=== PATIENT | female | born 1990 | race American Indian/Alaskan Native ===

== ENCOUNTER 2017-12-04 14:27 | Outpatient (CLI) | payer OTHER ==
[2017-12-04] MEDS ORDERED: LACTATED RINGERS 500 ML IV ONE (14:46)
[2017-12-04] MEDS ORDERED: NORMOSOL-R PH 7.4 1,000 ML IV ONE ×2 (14:50→16:17)
[2017-12-04 15:02] LABS: Bacteria,Urine 1+ /HPF (Negative); Bilirubin,Urine NEG (Negative); Blood,Urine SM (Negative); Color,Urine Yellow (Yellow); Mucus,Urine 3+ /HPF; Urobilinogen,Urine < 2.0 mg/dL (<2.0)
[2017-12-04 15:03] LABS: Protein,Urine >500 mg/dL (Negative)
[2017-12-04 15:08] LABS: Amphetamine Screen,Urine PRESUMPTIVE NEGATIVE; Benzodiazepines Screen,Urine PRESUMPTIVE NEGATIVE; Cocaine Screen,Urine PRESUMPTIVE NEGATIVE; Methadone Screen,Urine PRESUMPTIVE NEGATIVE; Opiate Screen,Urine PRESUMPTIVE NEGATIVE
[2017-12-04 15:20] LABS: Cannabinoid Screen,Urine PRESUMPTIVE POSITIVE
[2017-12-04 16:48] LABS: Hematocrit 39.7 % (30.3-42.9); Hemoglobin 13.1 gm/dl (10.1-14.3); Mean Corpuscular HGB Conc 33 % (30-34); Mean Corpuscular Hemoglobin 29 pg (28-32); Mean Corpuscular Volume 88 fl (79-97); Platelet Count 140 K/mm3 (140-440); Red Blood Count 4.51 M/mm3 (3.65-5.03); Red Cell Distribution Width 14.9 % (13.2-15.2)
[2017-12-04 18:16] LABS: Alanine Aminotransferase 12 units/L (7-56)
[2017-12-04 18:40] VITALS: BP 123/67
--- NOTE | 2017-12-04 18:44 | Ultrasound Report ---
FINAL REPORT EXAM: US OB > = 14 WEEKS FETUS HISTORY: no care, elevated b/p TECHNIQUE: Standard full obstetrical ultrasound PRIORS: None. FINDINGS: LMP: 04/14/2017 clinical Age: 33 w 3 d US Age (average) = 29 w 1d EFW (BPD,HC,AC,FL) = 1186 g+/- 176g (2 lbs. 10 oz. +/- 6oz.) LMP EDC 01/19/2018 US EDC 02/18/2018 CI 78.4 (range 74 to 83) HC/AC 1.23 (range 0.96 to 1.11) FL/BPD 72.1 (range 71.7 to 87.7) FL/HC 19.5 (range 18.3 to 23.1) FL/AC 24.0 (range 20 to 24) BPD 7.6 cm corresponding to estimated age 30 weeks 2 days HC 27.8 cm corresponding to estimated age 30 weeks 3 days AC 22.7 cm corresponding to estimated age 27 weeks 0 days FL 5.4 cm corresponding to estimated age 28 weeks 5 days Presentation: Cephalic Activity: Monitored Placental location: Toward the right lateral aspect of the uterus Placental grade: 0 Cardiac motion: 142 BPM using M-mode doppler Heart (4 CH) : Present Umbilical cord: 3 vessel Bladder: Present Kidneys: Present stomach: Present Diaphragm: Present Spine: Present brain and skull: Present with normal anatomy femurs: Present Cord Insertion: Present Amniotic Fluid Volume: Adequate LANE: 10.4 cm Cervical Length: 3.5 cm IMPRESSION: Single intrauterine viable with an approximate age of 29 weeks 1 days.
== END 2017-12-04 18:52 | disposition home or self-care (01) ==
LOC: TRG 14:27
PROVIDERS: ATTEND Obstetrics & Gynecology
DX: O47.03 False labor before 37 completed weeks of gestation, third trimester (principal); Z3A.33 33 weeks gestation of pregnancy
CPT/HCPCS: 36415; 59025; 76805; 80307; 81001; 82565; 83615; 84450; 84460; 84550; 85027; 87086; 96360; 96361

== ENCOUNTER 2017-12-17 15:28 | Inpatient (IN) | payer OTHER ==
[2017-12-17 16:18] LABS: Bacteria,Urine 1+ /HPF (Negative); Bilirubin,Urine NEG (Negative); Blood,Urine SM (Negative); Color,Urine Yellow (Yellow); Mucus,Urine FEW /HPF; Urobilinogen,Urine < 2.0 mg/dL (<2.0)
[2017-12-17] MEDS ORDERED: LACTATED RINGERS 500 ML IV SCH (17:00)
[2017-12-17] MEDS ORDERED: PITOCin/NS 20 UNIT/1000ML DRIP 20,000 MILLIUNITS/1,000 ML BAG IV ONE (17:59)
[2017-12-17] MEDS ORDERED: REGLAN ONE (17:59)
[2017-12-17] MEDS ORDERED: BICITRA ONE (17:59)
[2017-12-17] MEDS ORDERED: ANCEF/STERILE WATER 2 GM/20 ML 0 GM/0 ML SYRINGE IV ONE (18:00)
[2017-12-17] MEDS ORDERED: PEPCID IV ONE (18:00)
[2017-12-17] MEDS ORDERED: SUBLIMAZE ONE (18:18)
--- NOTE | 2017-12-17 18:31 | History and Physical Report ---
History of Present Illness Date of examination: 12/17/17 Date of admission: 12/17/17 17:45 Chief complaint: active labor History of present illness: Pt with no care lmp 04/14/17 and edc of 01/19/18 and ega of 35 2. EDC by niesha done on 12/04/17 is 02/18/18. Pt has not had any care. It is unclear if she has IUGR as she is 35+ wks by lmp that she states she is sure about. Past History Past Medical History: no pertinent history Past Surgical History: section Social history: no significant social history - Obstetrical History Expected Date of Delivery: 01/19/18 Actual Gestation: 35 Week(s) 2 Day(s) : 4 Para: 3 Number of Living Children: 3 Medications and Allergies Allergies Allergy/AdvReac Type Severity Reaction Status Date / Time No Known Allergies Allergy Unverified 12/04/17 14:45 Home Medications Medication Instructions Recorded Confirmed Last Taken Type Nitrofurantoin Monohyd/M-Cryst 100 mg PO BID #14 capsule 12/04/17 Unknown Rx [Macrobid 100 mg Capsule] Active Meds: Active Medications Lactated Ringer's (Lactated Ringers) 500 mls @ 999 mls/hr IV DIRECT NARESH Last Admin: 12/17/17 17:19 Dose: 999 mls/hr Review of Systems All systems: negative - Vital Signs Vital signs: Vital Signs Pulse BP 95 H 135/98 12/17/17 16:08 12/17/17 16:08 Temp Pulse Resp BP Pulse Ox 98.0 F 115 H 18 119/83 100 12/17/17 16:57 12/17/17 17:58 12/17/17 16:57 12/17/17 17:00 12/17/17 17:58 - Physical Exam Lungs: Positive: Clear to auscultation, Normal air movement Abdomen: Positive: normal appearance, soft. Negative: distention, tenderness, guarding Genitourinary (Female): Positive: normal external genitalia, normal perenium. Negative: perineal/vulvar lesions - Obstetrical FHR: auscultation normal Results Abnormal lab results 12/17/17 Range/Units 15:55 Urine WBC (Auto) 29.0 H (0.0-6.0) /HPF All other labs normal. Assessment and Plan - Patient Problems (1) 35 weeks gestation of Current Visit: Yes Status: Acute (2) History of precipitous labor and deliveries in third trimester, antepartum Current Visit: Yes Status: Acute (3) No care in current in third trimester Current Visit: No Status: Acute (4) Previous section Current Visit: No Status: Acute
[2017-12-17] MEDS ORDERED: BRETHINE SUB-Q PRN (18:32)
[2017-12-17] MEDS ORDERED: BRETHINE IVP PRN (18:32)
[2017-12-17] MEDS ORDERED: ePHEDrine SULFATE IV PRN (18:32)
[2017-12-17] MEDS ORDERED: MINERAL OIL PO PRN (18:32)
[2017-12-17] MEDS ORDERED: SUBLIMAZE IV PRN (18:32)
[2017-12-17] MEDS ORDERED: ZOFRAN IV PRN (18:34)
[2017-12-17] MEDS ORDERED: BENADRYL PO PRN (18:34)
[2017-12-17] MEDS ORDERED: PHENERGAN PO PRN (18:34)
[2017-12-17] MEDS ORDERED: PHENERGAN PR PRN (18:34)
[2017-12-17] MEDS ORDERED: TUCKS PAD TP PRN (18:34)
[2017-12-17] MEDS ORDERED: MILK OF MAGNESIA PO PRN (18:34)
[2017-12-17] MEDS ORDERED: TYLENOL PO PRN ×2 (18:34→23:20)
[2017-12-17] MEDS ORDERED: LANSINOH TP PRN (18:34)
[2017-12-17] MEDS ORDERED: DULCOLAX PR PRN (18:34)
[2017-12-17 18:40] LABS: Hemoglobin 13.2 gm/dl (10.1-14.3); Mean Corpuscular HGB Conc 32 % (30-34); Mean Corpuscular Hemoglobin 29 pg (28-32); Mean Corpuscular Volume 91 fl (79-97); Platelet Count 147 K/mm3 (140-440); Red Blood Count 4.53 M/mm3 (3.65-5.03)
--- NOTE | 2017-12-17 18:47 | Procedure Note ---
OB Delivery Note - Delivery Date of Delivery: 12/17/17 Surgeon: FAUSTINO WALKER Estimated blood loss: 200cc - Vaginal Delivery presentation: vertex Delivery position: OA Intrapartum events: no care, PROM->1hr before delivery, precipitous labor- <3hr, other(please specify) ( labor) Delivery induction: none Route of delivery: Delivery placenta: manual (intact up on examination) Delivery cord: 3 umbilical vessels Anesthesia: none Delivery comments: Delivery as above. There was a nuchal cord times one that was clamped x 2 and cut x1 and easily reduced. No shoulder dystocia. Inant was taken to waiting nicu and resp teams. Placenta manual extracted intact due to cord evulsion. Mother stable in LDR. Infant in NICU due to low weight. - A at 1 minute: 8 at 5 minutes: 9 Gender: Female (2lbs 14 oz)
[2017-12-17] MEDS ORDERED: PITOCin/NS 20 UNIT/1000ML DRIP 20 UNITS/1,000 ML BAG IV SCH (19:00)
[2017-12-17] MEDS ORDERED: PITOCin/NS 30 UNIT/500ML 30 UNITS/500 ML BAG IV SCH (19:00)
[2017-12-17] MEDS ORDERED: LACTATED RINGERS 1,000 ML IV SCH (19:00)
[2017-12-17] MEDS ORDERED: SODIUM CHLORIDE FLUSH SYRINGE 10 ML IV NR (19:00)
[2017-12-17] MEDS: MOTRIN PO SCH (19:39)
[2017-12-17] MEDS ORDERED: APRESOLINE ONE (19:53)
[2017-12-17 20:31] LABS: Amphetamine Screen,Urine PRESUMPTIVE NEGATIVE; Benzodiazepines Screen,Urine PRESUMPTIVE NEGATIVE; Cocaine Screen,Urine PRESUMPTIVE NEGATIVE; Methadone Screen,Urine PRESUMPTIVE NEGATIVE; Opiate Screen,Urine PRESUMPTIVE NEGATIVE
[2017-12-17 20:41] LABS: Hepatitis C Virus Antibody Non-Reactive (NonReactive)
[2017-12-17 20:44] LABS: Cannabinoid Screen,Urine PRESUMPTIVE POSITIVE
[2017-12-17] MEDS ORDERED: APRESOLINE IV ONE (21:00)
[2017-12-17 21:07] LABS: Rubella IgG Antibody Immune (Immune)
[2017-12-17] MEDS ORDERED: MOTRIN PO PRN (23:19)
[2017-12-18] MEDS ORDERED: BOOSTRIX IM ONE ×2 (06:00→06:14)
[2017-12-18 06:35] LABS: Hemoglobin 12.4 gm/dl (10.1-14.3)
--- NOTE | 2017-12-18 10:29 | Discharge Summary ---
Providers - Providers Date of Admission: 12/17/17 17:45 Attending physician: FAUSTINO WALKER Primary care physician: FAUSTINO WALKER Hospitalization Reason for admission: active labor, IUP - , labor, other (no care) Delivery: Episiotomy: none Laceration: none Other procedures: none complications: none Discharge diagnosis: delivery Brady baby: female Hospital course: Patient was admitted underwent a normal spontaneous vaginal delivery. Her course was benign. She was afebrile throughout her stay. Her day 1 hematocrit was 37%. Patient without care delivered an infant 2 lbs. 14 oz. being taken care of in the NICU. Patient desires discharge today. Patient states anticipate infant to be hospitalized for at least 1 month. Condition at discharge: Good Disposition: DC-01 TO HOME OR SELFCARE - Discharge Diagnoses (1) No care in current in third trimester Status: Acute Plan - Discharge Medications Prescriptions: Ibuprofen [Motrin 800 MG tab] 800 mg PO Q6H PRN #30 tablet PRN Reason: Pain - Provider Discharge Summary Activity: routine, no sex for 6 weeks, no strenuous exercise Diet: routine Instructions: routine Additional instructions: [] Smoking cessation referral if applicable(refer to patient education folder for contact #) [] Refer to [facility]'s [facility] Booklet Call your doctor immediately for: * Fever > 100.5 * Heavy vaginal bleeding ( >1 pad per hour) * Severe persistent headache * Shortness of breath * Reddened, hot, painful area to leg or breast * Drainage or odor from incision. * Patient was given our office information to contact the follow-up for post care. - Follow up plan Follow up: FAUSTINO WALKER MD [Primary Care Provider] - 7 Days
[2017-12-18] MEDS: MOTRIN PO SCH (12:52)
[2017-12-18 17:06] VITALS: BP 128/96
== END 2017-12-18 19:00 | disposition home or self-care (01) | DRG 775 ==
LOC: TRG 15:28 → LD 15:31 → OB 21:35
PROVIDERS: ADMIT Obstetrics & Gynecology; ATTEND Obstetrics & Gynecology
PROC: 10E0XZZ Delivery of Products of Conception, External Approach (ICD-10-PCS; principal; 2017-12-17)
PROC: 3E0234Z Introduction of Serum, Toxoid and Vaccine into Muscle, Percutaneous Approach (ICD-10-PCS; 2017-12-18)
PROC: 30233S1 Transfusion of Nonautologous Globulin into Peripheral Vein, Percutaneous Approach (ICD-10-PCS; 2017-12-18)
DX: O42.013 Preterm premature rupture of membranes, onset of labor within 24 hours of rupture, third trimester (principal); O36.5930 Maternal care for other known or suspected poor fetal growth, third trimester, not applicable or unspecified; Z37.0 Single live birth; O62.3 Precipitate labor; O69.81X0 Labor and delivery complicated by cord around neck, without compression, not applicable or unspecified; Z3A.35 35 weeks gestation of pregnancy; Z23 Encounter for immunization
CPT/HCPCS: 36415; 80307; 81001; 85014; 85018; 85027; 85461; 85660; 86592; 86706; 86762; 86803; 86850; 86900; 86901; 87806; 88307; 90471; 90715; J0360; J0690; J2590; J2765; J2790; J3010; J7120

== ENCOUNTER 2021-08-10 09:10 | Emergency (ER) | payer SELFPAY ==
[2021-08-10] MEDS ORDERED: HALOPERIDOL LACTATE 5 MG/1 ML INJ IV ONE (09:43)
[2021-08-10] MEDS ORDERED: MORPHINE 4 MG/1 ML INJ IV ONE (09:43)
[2021-08-10] MEDS ORDERED: FAMOTIDINE 20 MG/2 ML INJ IV ONE (09:43)
[2021-08-10] MEDS ORDERED: SODIUM CHLORIDE 0.9% 1000 ML 1,000 ML IV ONE (09:43)
--- NOTE | 2021-08-10 09:50 | Emergency Department Report ---
ED Abdominal Pain HPI - General Chief Complaint: Abdominal Pain Stated Complaint: N/V x2 DAYS PUI?: No Time Seen by Provider: 08/10/21 09:37 Source: patient, EMS Mode of arrival: Wheelchair Limitations: No Limitations - History of Present Illness Initial Comments: CC: Abdominal pain back pain, vomiting. HPI: This is a 30-year-old female with history of marijuana dependence who presents with recurrent abdominal back pain for several years. Worse over the last 2 days. Achy pain in the back and abdomen. Severe nausea vomiting. She continues to use marijuana although encouraged to stop by the medical providers. She was encouraged to have endoscopy by gang bore operator. She has not pursued outpatient treatment or work-up. She recently moved from [place]. Consequently she does not have a care physician. MD Complaint: abdominal pain, other (Bilateral back pain) -: Gradual, days(s) (2 days) Location: diffuse Radiation: L flank, R flank Severity: severe Severity scale (0 -10): 10 Quality: aching Consistency: constant Improves With: nothing Worsens With: nothing Context: other (Marijuana dependence) Associated Symptoms: nausea, vomiting - Related Data Previous Rx's Medication Instructions Recorded Last Taken Type Ibuprofen [Motrin 800 MG tab] 800 mg PO Q6H PRN #30 tablet 12/18/17 Unknown Rx Potassium Chloride [K-Dur] 20 meq PO QDAY 14 Days #14 tablet 08/10/21 Unknown Rx Promethazine [Phenergan] 25 mg PO Q6HR PRN #20 tab 08/10/21 Unknown Rx Allergies Allergy/AdvReac Type Severity Reaction Status Date / Time ondansetron [From Zofran] AdvReac Unknown Verified 08/10/21 09:19 ED Review of Systems ROS: Stated complaint: N/V x2 DAYS Other details as noted in HPI Comment: All other systems reviewed and negative Constitutional: denies: chills, fever, malaise Respiratory: denies: cough, shortness of breath Cardiovascular: denies: chest pain Gastrointestinal: abdominal pain, nausea, vomiting Musculoskeletal: back pain ED Past Medical Hx - Past Medical History Previous Medical History?: Yes Hx Hypertension: No Hx Congestive Heart Failure: No Hx Diabetes: No Hx Deep Vein Thrombosis: No Hx Renal Disease: No Hx Sickle Cell Disease: No Hx Seizures: No Hx Asthma: No Hx COPD: No Hx HIV: No - Surgical History Additional Surgical History: section - Social History Smoking Status: Never Smoker Substance Use Type: Marijuana - Medications Home Medications: Home Medications Medication Instructions Recorded Confirmed Last Taken Type Ibuprofen [Motrin 800 MG tab] 800 mg PO Q6H PRN #30 tablet 12/18/17 Unknown Rx Potassium Chloride [K-Dur] 20 meq PO QDAY 14 Days #14 tablet 08/10/21 Unknown Rx Promethazine [Phenergan] 25 mg PO Q6HR PRN #20 tab 08/10/21 Unknown Rx ED Physical Exam - General Limitations: No Limitations General appearance: alert, in no apparent distress, other (Appears uncomfortable rocking holding emesis bag) - Head Head exam: Present: atraumatic, normocephalic - Eye Eye exam: Present: normal appearance - ENT ENT exam: Present: mucous membranes moist - Neck Neck exam: Present: normal inspection, full ROM - Respiratory Respiratory exam: Present: normal lung sounds bilaterally. Absent: respiratory distress, wheezes, rales, rhonchi - Cardiovascular Cardiovascular Exam: Present: regular rate, normal rhythm, tachycardia, normal heart sounds. Absent: systolic murmur, diastolic murmur, rubs, gallop - GI/Abdominal GI/Abdominal exam: Present: soft, normal bowel sounds. Absent: distended, tenderness, guarding, rebound - Extremities Exam Extremities exam: Present: normal inspection - Neurological Exam Neurological exam: Present: alert, oriented X3 - Psychiatric Psychiatric exam: Present: normal affect, normal mood - Skin Skin exam: Present: warm, dry, intact, normal color. Absent: rash ED Course Vital Signs 08/10/21 08/10/21 08/10/21 09:14 09:48 09:50 Temperature 98.5 F Pulse Rate 125 H 111 H 110 H Respiratory 18 15 15 Rate Blood Pressure Blood Pressure 149/114 [Left] O2 Sat by Pulse 100 100 98 Oximetry 08/10/21 08/10/21 08/10/21 09:56 10:00 10:06 Temperature Pulse Rate 108 H 98 H 109 H Respiratory 14 14 19 Rate Blood Pressure Blood Pressure [Left] O2 Sat by Pulse 100 98 97 Oximetry 08/10/21 08/10/21 08/10/21 10:10 10:16 10:23 Temperature Pulse Rate 104 H 93 H 105 H Respiratory 11 L 20 21 Rate Blood Pressure Blood Pressure [Left] O2 Sat by Pulse 100 97 99 Oximetry 08/10/21 08/10/21 08/10/21 10:25 10:31 10:35 Temperature Pulse Rate 103 H 98 H 94 H Respiratory 13 14 15 Rate Blood Pressure Blood Pressure [Left] O2 Sat by Pulse 99 97 96 Oximetry 08/10/21 08/10/21 08/10/21 10:41 10:42 10:45 Temperature Pulse Rate 99 H 97 H Respiratory 17 17 Rate Blood Pressure Blood Pressure [Left] O2 Sat by Pulse 98 99 98 Oximetry 08/10/21 08/10/21 08/10/21 10:51 10:55 11:01 Temperature Pulse Rate 97 H 95 H 95 H Respiratory 16 15 18 Rate Blood Pressure Blood Pressure [Left] O2 Sat by Pulse 98 98 98 Oximetry 08/10/21 08/10/21 08/10/21 11:05 11:11 11:15 Temperature Pulse Rate 104 H 98 H 100 H Respiratory 21 18 19 Rate Blood Pressure Blood Pressure [Left] O2 Sat by Pulse 99 99 99 Oximetry 08/10/21 08/10/21 08/10/21 11:21 11:38 11:41 Temperature Pulse Rate 96 H 92 H 83 Respiratory 14 14 Rate Blood Pressure 117/72 Blood Pressure [Left] O2 Sat by Pulse 100 Oximetry 08/10/21 08/10/21 08/10/21 11:45 11:51 11:55 Temperature Pulse Rate 87 87 89 Respiratory 13 15 16 Rate Blood Pressure 117/72 117/72 Blood Pressure [Left] O2 Sat by Pulse Oximetry 08/10/21 08/10/21 08/10/21 12:01 12:05 12:11 Temperature Pulse Rate 90 89 88 Respiratory 14 14 14 Rate Blood Pressure 106/69 117/72 117/72 Blood Pressure [Left] O2 Sat by Pulse Oximetry 08/10/21 08/10/21 08/10/21 12:15 12:21 12:25 Temperature Pulse Rate 99 H 86 84 Respiratory 16 14 14 Rate Blood Pressure 117/72 117/72 117/72 Blood Pressure [Left] O2 Sat by Pulse Oximetry 08/10/21 08/10/21 12:31 12:35 Temperature Pulse Rate 91 H 86 Respiratory 14 14 Rate Blood Pressure 116/78 116/78 Blood Pressure [Left] O2 Sat by Pulse Oximetry ED Medical Decision Making - Lab Data Result diagrams: 08/10/21 10:15 08/10/21 10:15 - Radiology Data Radiology results: report reviewed Patient Name: GENEVIEVE HERNANDEZ Gender: Female Date of : 1990 Referring Provider: STEPHANIE LY Organization: [facility] Accession Number: [id number] Requested Date: August 10, 2021 11:31 Report Status: Final Requested Procedure: 1 Procedure Description: CT abdomen pelvis wo con Modality: CT Findings Reporting MD: Matt Grace Dictation Time: August 10, 2021 11:02 Field Laboratory Operator: Not available Toolroom Keeper Date: CT ABDOMEN AND PELVIS WITHOUT CONTRAST INDICATION / CLINICAL INFORMATION: Pt complains of abdominal / back pain with nausea and vomiting. TECHNIQUE: Axial CT images were obtained through the abdomen and pelvis without IV contrast. All CT scans at this location are performed using CT dose reduction for ALARA by means of automated exposure control. COMPARISON: None available. FINDINGS: LOWER CHEST: No significant abnormality. LIVER: No significant abnormality. GALLBLADDER: No significant abnormality. BILE DUCTS: No significant abnormality. PANCREAS: No significant abnormality. SPLEEN: No significant abnormality. ADRENALS: No significant abnormality. KIDNEYS / URETERS: No significant abnormality. STOMACH / SMALL BOWEL: No significant abnormality. COLON: No significant abnormality. APPENDIX: No significant abnormality. PERITONEUM: No free fluid. No free air. No fluid collection. LYMPH NODES: No significant adenopathy. AORTA / ARTERIES: No significant abnormality. IVC / VEINS: No significant abnormality. URINARY BLADDER: No significant abnormality. REPRODUCTIVE ORGANS: No significant abnormality. ADDITIONAL FINDINGS: None. BONES: No significant abnormality. IMPRESSION: No acute findings to explain the patient's complaints. Signer Name: Matt Grace MD Signed: 08/10/2021 11:02 AM Workstation Name: [id number] - Medical Decision Making Clinical impression: Cannabinoid hyperemesis syndrome, differential diagnosis includes IBS peptic ulcer disease. CT abdomen pelvis without evidence of renal colic intra-abdominal pelvic inflammatory obstructive process Strongly recommended cessation of marijuana use. Prescribed promethazine. Prescribed potassium tablets. Work-up notable for equivocal leukocytosis. hCG negative. Hypokalemia 2.6. Patient given referral to GI specialist outpatient medicine physician Critical care attestation.: If time is entered above; I have spent that time in minutes in the direct care of this critically ill patient, excluding procedure time. ED Disposition Clinical Impression: Cannabinoid hyperemesis syndrome Disposition: HOME / SELF CARE / HOMELESS Is pt being admited?: No Does the pt Need Aspirin: No Condition: Stable Instructions: Abdominal Pain (ED), Cannabis Use Disorder Prescriptions: Potassium Chloride [K-Dur] 20 meq PO QDAY 14 Days #14 tablet Promethazine [Phenergan] 25 mg PO Q6HR PRN #20 tab PRN Reason: Nausea Referrals: KYLAH MUNOZ MD [Staff Physician] - 3-5 Days KASIE IVORY MD [Staff Physician] - 3-5 Days Forms: Work/School Release Form(ED)
[2021-08-10 10:34] LABS: Hematocrit 33.6 % (30.3-42.9); Hemoglobin 10.4 gm/dl (10.1-14.3); Mean Corpuscular HGB Conc 31 % (30-34); Mean Corpuscular Volume 72 fl (79-97); Platelet Count 295 K/mm3 (140-440); Red Blood Count 4.67 M/mm3 (3.65-5.03)
[2021-08-10 10:37] LABS: Red Cell Distribution Width 25.1 % (13.2-15.2)
[2021-08-10 11:20] LABS: BUN/Creatinine Ratio 20; Blood Urea Nitrogen 18 mg/dL (7-17); Calcium 10.1 mg/dL (8.4-10.2); Hemolysis Index 0
--- NOTE | 2021-08-10 12:06 | Cat Scan Report ---
CT ABDOMEN AND PELVIS WITHOUT CONTRAST INDICATION / CLINICAL INFORMATION: Pt complains of abdominal / back pain with nausea and vomiting. TECHNIQUE: Axial CT images were obtained through the abdomen and pelvis without IV contrast. All CT scans at [facility] location are performed using CT dose reduction for ALARA by means of automated exposure control. COMPARISON: None available. FINDINGS: LOWER CHEST: No significant abnormality. LIVER: No significant abnormality. GALLBLADDER: No significant abnormality. BILE DUCTS: No significant abnormality. PANCREAS: No significant abnormality. SPLEEN: No significant abnormality. ADRENALS: No significant abnormality. KIDNEYS / URETERS: No significant abnormality. STOMACH / SMALL BOWEL: No significant abnormality. COLON: No significant abnormality. APPENDIX: No significant abnormality. PERITONEUM: No free fluid. No free air. No fluid collection. LYMPH NODES: No significant adenopathy. AORTA / ARTERIES: No significant abnormality. IVC / VEINS: No significant abnormality. URINARY BLADDER: No significant abnormality. REPRODUCTIVE ORGANS: No significant abnormality. ADDITIONAL FINDINGS: None. BONES: No significant abnormality. IMPRESSION: No acute findings to explain the patient's complaints. Signer Name: Matt Grace MD Signed: 08/10/2021 12:02 PM Workstation Name: [id number]
[2021-08-10 12:38] VITALS: BP 116/78
[2021-08-10 17:02] LABS: Total Cells Counted 100
[2021-08-10 17:03] LABS: Anisocytosis 2+; Hypochromasia 1+; Target Cells 1+
[2021-08-10 17:04] LABS: Platelet Estimate Consistent w Auto
== END 2021-08-10 12:57 | disposition home or self-care (01) ==
LOC: ED 09:10
DX: R11.2 Nausea with vomiting, unspecified (principal); R10.84 Generalized abdominal pain
CPT/HCPCS: 36415; 74176; 80048; 83690; 84703; 85007; 85025; 96361; 96374; 96375; 99284; J1630; J2270; J3490; J7030; Q0162

== ENCOUNTER 2021-09-30 17:39 | Emergency (ER) | payer OTHER ==
[2021-09-30] MEDS ORDERED: METOCLOPRAMIDE 10 MG/2 ML INJ IV ONE (18:45)
[2021-09-30] MEDS ORDERED: diphenhydrAMINE 50 MG/ML VIAL IV ONE (18:45)
[2021-09-30] MEDS ORDERED: SODIUM CHLORIDE 0.9% 1000 ML 1,000 ML IV ONE ×2 (18:45→21:41)
--- NOTE | 2021-09-30 18:45 | Event Note ---
ED Screening Note ED Screening Note: n/v for a week states she cannot tolerate PO intake states she has associated back pain no fever no urinary symptoms LNMP couple weeks ago + marijuana This initial assessment/diagnostic orders/clinical plan/treatment(s) is/are subject to change based on patients health status, clinical progression and re- assessment by fellow clinical providers in the ED. Further treatment and workup at subsequent clinical providers discretion. Patient/guardian urged not to elope from the ED as their condition may be serious if not clinically assessed and managed. Initial orders include: labs, urine, meds
[2021-09-30 19:27] LABS: Basophils # (Auto) 0.1 K/mm3 (0.0-0.1); Basophils % (Auto) 1.1 % (0.0-1.8); Eosinophils % (Auto) 0.3 % (0.0-4.3); Lymphocytes # (Auto) 1.9 K/mm3 (1.2-5.4); Lymphocytes % (Auto) 20.4 % (13.4-35.0); Mean Corpuscular HGB Conc 31 % (30-34); Mean Corpuscular Volume 73 fl (79-97); Monocytes # (Auto) 1.1 K/mm3 (0.0-0.8); Monocytes % (Auto) 11.5 % (0.0-7.3); Platelet Count 287 K/mm3 (140-440); Red Blood Count 5.51 M/mm3 (3.65-5.03)
[2021-09-30 19:42] LABS: Alanine Aminotransferase 16 units/L (7-56); Albumin 5.4 g/dL (3.9-5); BUN/Creatinine Ratio 23; Blood Urea Nitrogen 21 mg/dL (7-17); Calcium 11.2 mg/dL (8.4-10.2); Hemolysis Index 11
[2021-09-30] MEDS ORDERED: POTASSIUM CHLORIDE ER 20 MEQ TAB PO ONE (19:48)
[2021-09-30 20:20] LABS: Hemoglobin 12.4 gm/dl (10.1-14.3)
[2021-09-30 20:21] LABS: Hematocrit 40.4 % (30.3-42.9); Red Cell Distribution Width 24.6 % (13.2-15.2)
[2021-09-30] MEDS ORDERED: MORPHINE 4 MG/1 ML INJ IV ONE (21:41)
--- NOTE | 2021-09-30 21:43 | Emergency Department Report ---
ED Abdominal Pain HPI - General Chief Complaint: Abdominal Pain Stated Complaint: Nausea and Vomiting Time Seen by Provider: 09/30/21 21:34 Source: patient Mode of arrival: Stretcher Limitations: No Limitations - History of Present Illness Initial Comments: Chief complaint: "Pain" HPI: This is a 30-year-old female with a history of marijuana dependence who presents with nausea vomiting x7 days. She has diffuse abdominal pain rating to her back. She has not been able to eat or drink over that time period. Her last use of marijuana 2 weeks ago. I evaluated patient for similar presentation 2 months ago July. 6 weeks ago July 2021. With severe abdominal pain in July, I obtained CT abdomen pelvis which did not reveal a significant abnormality. She informed me that she has had abdominal pain nausea vomiting for several years. She was encouraged to stop using marijuana several medical providers. She also encouraged to have endoscopy. She has not pursued outpatient work-up or treatment. MD Complaint: abdominal pain -: Gradual, week(s) (1 week) Location: diffuse Radiation: back Severity: severe Severity scale (0 -10): 5 Quality: cramping Consistency: constant Improves With: nothing Worsens With: nothing Associated Symptoms: nausea, vomiting - Related Data Previous Rx's Medication Instructions Recorded Last Taken Type Ibuprofen [Motrin 800 MG tab] 800 mg PO Q6H PRN #30 tablet 12/18/17 Unknown Rx Potassium Chloride [K-Dur] 20 meq PO QDAY 14 Days #14 tablet 08/10/21 Unknown Rx Promethazine [Phenergan] 25 mg PO Q6HR PRN #20 tab 08/10/21 Unknown Rx Promethazine [Phenergan] 25 mg PO Q6HR PRN #10 tab 10/01/21 Unknown Rx Allergies Allergy/AdvReac Type Severity Reaction Status Date / Time ondansetron [From Zofran] AdvReac Unknown Verified 09/30/21 17:45 ED Review of Systems ROS: Stated complaint: Nausea and Vomiting Other details as noted in HPI Comment: All other systems reviewed and negative Constitutional: denies: chills, fever, malaise Respiratory: denies: cough, shortness of breath Gastrointestinal: abdominal pain, nausea, vomiting. denies: diarrhea Musculoskeletal: back pain ED Past Medical Hx - Past Medical History Hx Hypertension: No Hx Congestive Heart Failure: No Hx Diabetes: No Hx Deep Vein Thrombosis: No Hx Renal Disease: No Hx Sickle Cell Disease: No Hx Seizures: No Hx Asthma: No Hx COPD: No Hx HIV: No Additional medical history: Recurrent abdominal pain with nausea vomiting for several years - Surgical History Past Surgical History?: Yes Additional Surgical History: section - Social History Smoking Status: Never Smoker Substance Use Type: Marijuana - Medications Home Medications: Home Medications Medication Instructions Recorded Confirmed Last Taken Type Ibuprofen [Motrin 800 MG tab] 800 mg PO Q6H PRN #30 tablet 12/18/17 Unknown Rx Potassium Chloride [K-Dur] 20 meq PO QDAY 14 Days #14 tablet 08/10/21 Unknown Rx Promethazine [Phenergan] 25 mg PO Q6HR PRN #20 tab 08/10/21 Unknown Rx Promethazine [Phenergan] 25 mg PO Q6HR PRN #10 tab 10/01/21 Unknown Rx ED Physical Exam - General Limitations: No Limitations General appearance: alert, in no apparent distress, other (Nontoxic-appearing) - Head Head exam: Present: atraumatic, normocephalic - Eye Eye exam: Present: normal appearance - ENT ENT exam: Present: mucous membranes moist - Neck Neck exam: Present: normal inspection, full ROM - Respiratory Respiratory exam: Present: normal lung sounds bilaterally. Absent: respiratory distress, wheezes, rales, rhonchi - Cardiovascular Cardiovascular Exam: Present: normal rhythm, tachycardia, normal heart sounds. Absent: systolic murmur, diastolic murmur, rubs, gallop - GI/Abdominal GI/Abdominal exam: Present: soft, normal bowel sounds. Absent: distended, tenderness, guarding, rebound - Extremities Exam Extremities exam: Present: normal inspection - Neurological Exam Neurological exam: Present: alert, oriented X3 - Psychiatric Psychiatric exam: Present: normal affect, normal mood - Skin Skin exam: Present: warm, dry, intact, normal color. Absent: rash ED Course Vital Signs 09/30/21 09/30/21 09/30/21 17:39 18:34 18:48 Temperature 98.1 F Pulse Rate 143 H 108 H 140 H Respiratory 20 15 Rate Blood Pressure 113/89 130/88 [Left] O2 Sat by Pulse 98 100 Oximetry 10/01/21 10/01/21 00:44 02:44 Temperature 98.3 F Pulse Rate 105 H 100 H Respiratory 14 16 Rate Blood Pressure 109/72 [Left] O2 Sat by Pulse 99 100 Oximetry ED Medical Decision Making - Lab Data Result diagrams: 09/30/21 19:08 09/30/21 19:08 - Medical Decision Making Recurrent abdominal pain nausea vomiting with dehydration: Strongly suspect cannabinoid hyperemesis syndrome versus IBS. Patient received IV fluid normal saline bolus, IV morphine, IV diphenhydramine, IV Reglan. I did not observe ED vomiting emergency department during 5 hours of observation..Tachycardia resolved with IV fluid therapy. Prescribed promethazine. [facility] CBC without leukocytosis. No fever or abdominal tenderness to indicate peritonitis. Critical care attestation.: If time is entered above; I have spent that time in minutes in the direct care of this critically ill patient, excluding procedure time. ED Disposition Clinical Impression: Cannabinoid hyperemesis syndrome, Dehydration Disposition: 01 HOME / SELF CARE / HOMELESS Is pt being admited?: No Does the pt Need Aspirin: No Condition: Stable Instructions: Cannabis Use Disorder, Abdominal Pain (ED) Prescriptions: Promethazine [Phenergan] 25 mg PO Q6HR PRN #10 tab PRN Reason: Nausea Referrals: KYLAH MUNOZ MD [Staff Physician] - 3-5 Days
[2021-10-01 00:47] VITALS: BP 109/72
--- NOTE | 2021-10-01 10:11 | Electrocardiograph Report ---
[facility] Test Date: 2021-09-30 Test Time: 17:57:56 Pat Name: GENEVIEVE HERNANDEZ Department: Room: Gender: F Flexible Babysitter: MALICK : 1990 Requested By: STEPHANIE LY Order Number: [id number] Reading MD: Arsenio Pena Measurements Intervals [place] Rate: 137 P: 77 ND: 111 QRS: 78 QRSD: 82 T: -2 QT: 322 QTc: 485 Interpretive Statements Sinus tachycardia Atrial premature complex Probable left atrial enlargement No previous ECG available for comparison Electronically Signed On 10-01-2021 10:11:16 EST by Arsenio Pena
== END 2021-10-01 02:37 | disposition home or self-care (01) ==
LOC: ED 17:39
DX: R11.2 Nausea with vomiting, unspecified (principal); F12.288 Cannabis dependence with other cannabis-induced disorder; E86.0 Dehydration
CPT/HCPCS: 36415; 80053; 83690; 84703; 85025; 93005; 96361; 96374; 96375; 99284; J1200; J2270; J2765; J7030; Q0162

== ENCOUNTER 2021-11-23 20:02 | Emergency (ER) | payer OTHER ==
[2021-11-23] MEDS ORDERED: SODIUM CHLORIDE 0.9% 1000 ML 1,000 ML IV ONE (22:38)
[2021-11-23] MEDS ORDERED: KETOROLAC 30 MG/1 ML INJ IV ONE (22:38)
[2021-11-23] MEDS ORDERED: PROCHLORPERAZINE EDISYLATE 10 MG/2 ML VIAL IV ONE (22:38)
[2021-11-23] MEDS ORDERED: dexAMETHasone 20 MG/5 ML VIAL IV ONE (22:38)
[2021-11-23 23:20] LABS: Bacteria,Urine 1+ /HPF (Negative); Bilirubin,Urine NEG (Negative); Blood,Urine LG (Negative); Color,Urine Yellow (Yellow); Hyaline Casts,Urine 17 /LPF; Mucus,Urine 3+ /HPF; Urobilinogen,Urine < 2.0 mg/dL (<2.0)
[2021-11-23 23:52] LABS: Hematocrit 36.2 % (30.3-42.9); Hemoglobin 12.2 gm/dl (10.1-14.3); Mean Corpuscular HGB Conc 34 % (30-34); Mean Corpuscular Volume 76 fl (79-97); Platelet Count 196 K/mm3 (140-440); Red Blood Count 4.75 M/mm3 (3.65-5.03); Red Cell Distribution Width 26.1 % (13.2-15.2)
[2021-11-24 00:05] LABS: Alanine Aminotransferase 17 units/L (7-56); Albumin 5.3 g/dL (3.9-5); BUN/Creatinine Ratio 27; Blood Urea Nitrogen 24 mg/dL (7-17); Calcium 10.5 mg/dL (8.4-10.2); Hemolysis Index 5
[2021-11-24] MEDS ORDERED: POTASSIUM CHLORIDE ER 20 MEQ TAB PO ONE (00:07)
[2021-11-24] MEDS ORDERED: SODIUM CHLORIDE 0.9% 1000 ML 1,000 ML IV ONE (00:17)
--- NOTE | 2021-11-24 01:53 | Emergency Department Report ---
ED Back Pain/Injury HPI - General Chief Complaint: Back Pain/Injury Stated Complaint: BACK PAIN/N/V Source: patient, EMS Limitations: No Limitations - History of Present Illness Initial Comments: Patient is a 31-year-old -[place] female with a history of chronic recurrent cyclic vomiting syndrome with abdominal pain and chronic back pain who presents to the ED with complaint of acute exacerbation of her chronic back pain diffusely with nausea and vomiting for the last 1 week. Patient states that she has not been able to keep anything down especially in the last 2 days. Patient denies fall, traumatic injury, heavy lifting, chest pain or shortness of breath, fever, chills, dysuria, urinary frequency and urgency, abdominal pain, numbness and tingling or weakness of upper and lower extremities bilaterally, dizziness or syncope. MD Complaint: back pain, other (Nausea and vomiting) -: Sudden, week(s) (1) Similar Symptoms Previously: Yes (Chronic back pain) Place: home Radiation: none Severity: severe Severity scale (0 -10): 8 Quality: sharp, aching Consistency: constant Improves With: none Worsens With: movement, walking Context: while lifting, turning/twisting Associated Symptoms: denies other symptoms. denies: confusion, weakness, chest pain, numbness, difficulty walking, cough, difficulty urinating, diaphoresis, fever/chills, constipation, headaches, abdominal pain, loss of appetite, malaise, nausea/vomiting, rash, shortness of breath, syncope - Related Data Previous Rx's Medication Instructions Recorded Last Taken Type Ibuprofen [Motrin 800 MG tab] 800 mg PO Q6H PRN #30 tablet 12/18/17 Unknown Rx Potassium Chloride [K-Dur] 20 meq PO QDAY 14 Days #14 tablet 08/10/21 Unknown Rx Promethazine [Phenergan] 25 mg PO Q6HR PRN #10 tab 10/01/21 Unknown Rx Baclofen 20 mg PO Q12H PRN #30 tab 11/24/21 Unknown Rx Naproxen 500 mg PO Q12H PRN #30 tab 11/24/21 Unknown Rx Promethazine [Phenergan SUPPOS] 25 mg MN Q6HR PRN #15 supp.rect 11/24/21 Unknown Rx Promethazine [Phenergan] 25 mg PO Q6HR PRN #20 tab 11/24/21 Unknown Rx predniSONE [Deltasone] 40 mg PO QDAY #10 tab 11/24/21 Unknown Rx traMADoL [Ultram] 50 mg PO Q6HR PRN #12 tablet 11/24/21 Unknown Rx Allergies Allergy/AdvReac Type Severity Reaction Status Date / Time ondansetron [From Zofran] AdvReac Unknown Verified 11/23/21 20:04 ED Review of Systems ROS: Stated complaint: BACK PAIN/N/V Other details as noted in HPI Constitutional: denies: chills, fever Eyes: denies: eye pain, eye discharge, vision change ENT: denies: ear pain, throat pain Respiratory: denies: cough, shortness of breath, wheezing Cardiovascular: denies: chest pain, palpitations Endocrine: no symptoms reported Gastrointestinal: nausea, vomiting. denies: diarrhea, constipation, hematemesis, hematochezia Genitourinary: denies: urgency, dysuria, discharge Musculoskeletal: back pain, arthralgia, myalgia. denies: joint swelling Skin: denies: rash, lesions Neurological: denies: headache, weakness, paresthesias Psychiatric: denies: anxiety, depression Hematological/Lymphatic: denies: easy bleeding, easy bruising ED Past Medical Hx - Past Medical History Hx Hypertension: No Hx Congestive Heart Failure: No Hx Diabetes: No Hx Deep Vein Thrombosis: No Hx Renal Disease: No Hx Sickle Cell Disease: No Hx Seizures: No Hx Asthma: No Hx COPD: No Hx HIV: No Additional medical history: Recurrent abdominal pain with nausea vomiting for several years - Surgical History Additional Surgical History: section - Social History Smoking Status: Never Smoker Substance Use Type: Marijuana - Medications Home Medications: Home Medications Medication Instructions Recorded Confirmed Last Taken Type Ibuprofen [Motrin 800 MG tab] 800 mg PO Q6H PRN #30 tablet 12/18/17 Unknown Rx Potassium Chloride [K-Dur] 20 meq PO QDAY 14 Days #14 tablet 08/10/21 Unknown Rx Promethazine [Phenergan] 25 mg PO Q6HR PRN #10 tab 10/01/21 Unknown Rx Baclofen 20 mg PO Q12H PRN #30 tab 11/24/21 Unknown Rx Naproxen 500 mg PO Q12H PRN #30 tab 11/24/21 Unknown Rx Promethazine [Phenergan SUPPOS] 25 mg MN Q6HR PRN #15 supp.rect 11/24/21 Unknown Rx Promethazine [Phenergan] 25 mg PO Q6HR PRN #20 tab 11/24/21 Unknown Rx predniSONE [Deltasone] 40 mg PO QDAY #10 tab 11/24/21 Unknown Rx traMADoL [Ultram] 50 mg PO Q6HR PRN #12 tablet 11/24/21 Unknown Rx ED Physical Exam - General Limitations: No Limitations General appearance: alert, in no apparent distress - Head Head exam: Present: atraumatic, normocephalic, normal inspection - Eye Eye exam: Present: normal appearance, PERRL, EOMI Pupils: Present: normal accommodation - ENT ENT exam: Present: normal exam, normal orophraynx, mucous membranes moist, TM's normal bilaterally, normal external ear exam - Neck Neck exam: Present: normal inspection, full ROM. Absent: tenderness - Respiratory Respiratory exam: Present: normal lung sounds bilaterally. Absent: respiratory distress, wheezes, rales, rhonchi, chest wall tenderness, decreased breath sounds, prolonged expiratory - Cardiovascular Cardiovascular Exam: Present: regular rate, normal rhythm, normal heart sounds. Absent: systolic murmur, diastolic murmur, rubs, gallop - GI/Abdominal GI/Abdominal exam: Present: soft, normal bowel sounds. Absent: tenderness, guarding, hyperactive bowel sounds, hypoactive bowel sounds, organomegaly, mass - Extremities Exam Extremities exam: Present: normal inspection, full ROM, normal capillary refill. Absent: tenderness, pedal edema, joint swelling, calf tenderness - Back Exam Back exam: Present: normal inspection, full ROM, tenderness (Palpable diffuse posterior mid thoracic and lumbosacral paraspinal musculoskeletal tenderness), muscle spasm, paraspinal tenderness. Absent: CVA tenderness (R), CVA tenderness (L), vertebral tenderness, rash noted - Neurological Exam Neurological exam: Present: alert, oriented X3, CN II-XII intact, normal gait, reflexes normal - Psychiatric Psychiatric exam: Present: normal affect, normal mood, anxious - Skin Skin exam: Present: warm, dry, intact, normal color. Absent: rash ED Course Vital Signs 11/23/21 11/23/21 20:02 23:17 Pulse Rate 98 H Respiratory 20 14 Rate Blood Pressure 112/96 [Left] O2 Sat by Pulse 98 Oximetry ED Medical Decision Making - Lab Data Result diagrams: 11/23/21 22:44 03/06/22 22:44 - Medical Decision Making This is a 31-year-old -[place] female with a history of chronic recurrent cyclic vomiting syndrome with abdominal pain and chronic back pain who presents to the ED with complaint of acute exacerbation of her chronic back pain diffusely with nausea and vomiting for the last 1 week. Patient states that she has not been able to keep anything down especially in the last 2 days. In the ED, patient is alert and oriented x3 and is not in any distress. Patient was treated for pain in the ED and was given antiemetics, normal saline 1 L IV bolus x1. Lab test results were reviewed and showed mild hypokalemia of 3.1 mmol/L. The rest of the lab test results were nonactionable. On reevaluation, patient's pain resolved with medications. Patient has not had any nausea or vomiting while in the ED. Patient was therefore discharged home on medications including antiemetics and pain medications and advised to follow-up with her primary care physician in 7 to 10 days for reevaluation. Patient was advised return to the ED immediately if symptoms get worse. - Differential Diagnosis Muscle spasm; UTI; dehydration; muscle strain; Critical care attestation.: If time is entered above; I have spent that time in minutes in the direct care of this critically ill patient, excluding procedure time. ED Disposition Clinical Impression: Nausea and vomiting in adult patient, Spasm of thoracic back muscle, Strain of muscle, fascia and tendon of lower back, initial encounter, Hypokalemia Disposition: 01 HOME / SELF CARE / HOMELESS Is pt being admited?: No Does the pt Need Aspirin: No Condition: Stable Instructions: Muscle Cramps and Spasms, [id number], Muscle Strain, [id number], Nausea and Vomiting, Adult, [id number], Low Back Sprain or Strain Rehab-SportsMed, Lumbosacral Strain, Hypokalemia Additional Instructions: All lab test results were reviewed and are all nonactionable except for mild hypokalemia. Therefore take medications with food, drink plenty of fluids and follow-up with your primary care physician in 5 to 7 days for reevaluation. Return to the ED immediately if symptoms get worse. Prescriptions: Baclofen 20 mg PO Q12H PRN #30 tab PRN Reason: Muscle Spasm predniSONE [Deltasone] 40 mg PO QDAY #10 tab Naproxen 500 mg PO Q12H PRN #30 tab PRN Reason: Pain , Severe (7-10) Promethazine [Phenergan] 25 mg PO Q6HR PRN #20 tab PRN Reason: Nausea Promethazine [Phenergan SUPPOS] 25 mg MN Q6HR PRN #15 supp.rect PRN Reason: Nausea traMADoL [Ultram] 50 mg PO Q6HR PRN #12 tablet PRN Reason: Pain Referrals: KYLAH MUNOZ MD [Primary Care Provider] - 3-5 Days Forms: Work/School Release Form(ED) Time of Disposition: 01:54 Print Language: HUNGARIAN
[2021-11-24 02:22] VITALS: BP 109/74
[2021-11-24 03:00] LABS: Anisocytosis 2+; Hypochromasia 1+; Total Cells Counted 100
== END 2021-11-24 02:23 | disposition home or self-care (01) ==
LOC: ED 20:02
DX: S39.012A Strain of muscle, fascia and tendon of lower back, initial encounter (principal); R11.2 Nausea with vomiting, unspecified; E87.6 Hypokalemia; M62.830 Muscle spasm of back; Z91.09 Other allergy status, other than to drugs and biological substances; X58.XXXA Exposure to other specified factors, initial encounter; Y93.89 Activity, other specified; Y92.89 Other specified places as the place of occurrence of the external cause; Y99.8 Other external cause status
CPT/HCPCS: 36415; 80053; 81001; 84703; 85007; 85025; 96361; 96374; 96375; 99284; J0780; J1100; J1885; J7030; Q0162